=== PATIENT | female | born 1990 | race Two or more races ===

== ENCOUNTER 2019-10-24 18:06 | Emergency (ER) | payer SELFPAY ==
[~2019-10-24] VITALS: Ht 165.1 cm; Wt 68.0 kg
[2019-10-24 18:48] LABS: BILIRUBIN,URINE NEGATIVE (NEG); CLARITY,URINE CLEAR; COLOR,URINE YELLOW; NITRITE,URINE NEGATIVE (NEG); PH,URINE 6.5; PROTEIN,URINE NEGATIVE (NEG-TRACE); UROBILINOGEN,URINE 0.2 mg/dL (0.2 mg/dL)
[2019-10-24 19:00] LABS: BACTERIA,URINE FEW /HPF (0-FEW); SQUAMOUS EPITHELIAL CELL,UR FEW /LPF; WBC,URINE RARE /HPF (0-4)
[2019-10-24] MEDS ORDERED: LIDO:MAALOX 1:1 20 ML SINGLE DOSE. SWSW ONE (19:00)
[2019-10-24] MEDS ORDERED: IV NORMAL SALINE 1000ML BAG 1,000 ML IV ONE (19:00)
[2019-10-24] MEDS ORDERED: FAMOTIDINE 20 MG/2 ML VIAL IVP ONE (19:00)
[2019-10-24] MEDS ORDERED: ONDANSETRON PF 4 MG/2 ML VIAL. IV ONE (19:00)
[2019-10-24 19:21] LABS: BASO # 0.1 x10^3/uL (0.0-0.2); BASO % 1 % (0-3); EOS # 0.2 x10^3/uL (0.0-0.7); EOS % 1 % (0-3); HEMATOCRIT 40.3 % (36.0-47.0); HEMOGLOBIN 13.6 g/dL (12.0-15.5); LYMPH % 16 % (24-48); MEAN CORPUSCULAR HEMOGLOBIN 29 pg (25-35); MEAN CORPUSCULAR HGB CONC 34 g/dL (31-37); MEAN CORPUSCULAR VOLUME 86 fL (79-100); MONO # 0.5 x10^3/uL (0.0-1.1); MONO % 4 % (0-9); NEUT # 9.5 x10^3/uL (1.8-7.7); NEUT % 77 % (31-73); PLATELET COUNT 404 x10^3/uL (140-400); RED BLOOD COUNT 4.71 x10^6/uL (3.50-5.40); RED CELL DISTRIBUTION WIDTH 12.2 % (11.5-14.5); WHITE BLOOD COUNT 12.3 x10^3/uL (4.0-11.0)
[2019-10-24 19:26] LABS: CREATININE 0.8 mg/dL (0.6-1.0); GFR 85.4; POTASSIUM 3.4 mmol/L (3.5-5.1)
[2019-10-24 19:32] LABS: ALBUMIN 3.6 g/dL (3.4-5.0); ALBUMIN/GLOBULIN RATIO 0.9 (1.0-1.7); TOTAL BILIRUBIN 0.3 mg/dL (0.2-1.0); TOTAL PROTEIN 7.5 g/dL (6.4-8.2)
[2019-10-24 19:43] LABS: U PREG PATIENT NEGATIVE (NEG)
--- NOTE | 2019-10-24 19:47 | PHYS DOC ---
Past Medical History Past Medical History: No Pertinent History (VICENTE LAUGHLIN APRN) Past Surgical History: No Surgical History (VICENTE LAUGHLIN APRN) Alcohol Use: Occasionally Drug Use: None (VICENTE LAUGHLIN APRN) Attending Signature I have participated in the care of this patient and I have reviewed and agree with all pertinent clinical information above including history, exam, and recommendations. (DILIA SANCHEZ MD) Adult General Chief Complaint Chief Complaint: ABDOMINAL PAIN HPI HPI Patient is a 29 year old female who presents to the emergency department with complaints of nausea, vomiting, and epigastric pain that began today. Patient states she has vomited 3 times this evening. She denies any diarrhea, fever, sore throat, body aches, ear pain, cough, dysuria, hematuria, increased urinary frequency, back pain, shortness of breath, headache, or rash. She currently rates the pain a 10 out of 10 on pain scale and describes it as a burning sensation. All other ROS is neg unless otherwise noted in HPI. (VICENTE LAUGHLIN APRN) Review of Systems Review of Systems See Above (VICENTE LAUGHLIN APRN) Current Medications Current Medications Current Medications Medications (Trade) Dose Ordered Sig/Stephanie Start Time Stop Time Status Last Admin Dose Admin Famotidine (Pepcid Vial) 20 mg 1X ONCE 10/24/19 19:00 10/24/19 19:01 DC 10/24/19 19:11 20 MG Multi-Ingredient Mouthwash/Gargle (Gi Cocktail) 20 ml 1X ONCE 10/24/19 19:00 10/24/19 19:01 DC 10/24/19 19:11 20 ML Ondansetron HCl (Zofran) 4 mg 1X ONCE 10/24/19 19:00 10/24/19 19:01 DC 10/24/19 19:10 4 MG Sodium Chloride 1,000 ml @ 1,000 mls/hr 1X ONCE 10/24/19 19:00 10/24/19 19:59 DC 10/24/19 19:10 1,000 MLS/HR (DILIA SANCHEZ MD) Allergies Allergies Allergies Coded Allergies Type Severity Reaction Last Updated Verified No Known Drug Allergies 04/01/15 No (DILIA SANCHEZ MD) Physical Exam Physical Exam Constitutional: Well developed, well nourished, no acute distress, non-toxic appearance. [] HENT: Normocephalic, atraumatic, bilateral external ears normal, dry mucous membranes noted, no oral exudates, nose normal. [] Eyes: PERRLA, EOMI, conjunctiva normal, no discharge. [] Neck: Normal range of motion, no tenderness, supple, no stridor. [] Cardiovascular:Heart rate regular rhythm, no murmur [] Lungs & Thorax: Bilateral breath sounds clear to auscultation [] Abdomen: Bowel sounds normal, soft, epigastric tenderness to palpation, no guarding, no rebound tenderness, no masses, no pulsatile masses. [] Skin: Warm, dry, no erythema, no rash. [] Back: No CVA tenderness. [] Extremities: No cyanosis, ROM intact, no edema. [] Neurologic: Alert and oriented X 3, no focal deficits noted. [] Psychologic: Affect normal, judgement normal, mood normal. [] (VICENTE LAUGHLIN APRN) Current Patient Data Vital Signs Vital Signs Date Time Temp Pulse Resp B/P (MAP) Pulse Ox O2 Delivery O2 Flow Rate FiO2 10/24/19 20:00 80 20 101/68 (79) 98 Room Air 10/24/19 18:13 97.8 97.8 (DILIA SANCHEZ MD) Lab Values Laboratory Tests Test 10/24/19 18:44 10/24/19 19:15 Urine Collection Type Unknown Urine Color Yellow Urine Clarity Clear Urine pH 6.5 Urine Specific Pharr 1.025 Urine Protein Negative mg/dL (NEG-TRACE) Urine Glucose (UA) Negative mg/dL (NEG) Urine Ketones (Stick) Negative mg/dL (NEG) Urine Blood Small (NEG) Urine Nitrite Negative (NEG) Urine Bilirubin Negative (NEG) Urine Urobilinogen Dipstick 0.2 mg/dL (0.2 mg/dL) Urine Leukocyte Esterase Negative (NEG) Urine RBC 1-2 /HPF (0-2) Urine WBC Rare /HPF (0-4) Urine Squamous Epithelial Cells Few /LPF Urine Bacteria Few /HPF (0-FEW) Urine Mucus Slight /LPF Urine Test Negative (NEG) White Blood Count 12.3 x10^3/uL (4.0-11.0) H Red Blood Count 4.71 x10^6/uL (3.50-5.40) Hemoglobin 13.6 g/dL (12.0-15.5) Hematocrit 40.3 % (36.0-47.0) Mean Corpuscular Volume 86 fL (79-100) Mean Corpuscular Hemoglobin 29 pg (25-35) Mean Corpuscular Hemoglobin Concent 34 g/dL (31-37) Red Cell Distribution Width 12.2 % (11.5-14.5) Platelet Count 404 x10^3/uL (140-400) H Neutrophils (%) (Auto) 77 % (31-73) H Lymphocytes (%) (Auto) 16 % (24-48) L Monocytes (%) (Auto) 4 % (0-9) Eosinophils (%) (Auto) 1 % (0-3) Basophils (%) (Auto) 1 % (0-3) Neutrophils # (Auto) 9.5 x10^3/uL (1.8-7.7) H Lymphocytes # (Auto) 2.0 x10^3/uL (1.0-4.8) Monocytes # (Auto) 0.5 x10^3/uL (0.0-1.1) Eosinophils # (Auto) 0.2 x10^3/uL (0.0-0.7) Basophils # (Auto) 0.1 x10^3/uL (0.0-0.2) Sodium Level 138 mmol/L (136-145) Potassium Level 3.4 mmol/L (3.5-5.1) L Chloride Level 103 mmol/L (98-107) Carbon Dioxide Level 21 mmol/L (21-32) Anion Gap 14 (6-14) Blood Urea Nitrogen 15 mg/dL (7-20) Creatinine 0.8 mg/dL (0.6-1.0) Estimated GFR (Cockcroft-Gault) 85.4 BUN/Creatinine Ratio 19 (6-20) Glucose Level 125 mg/dL (70-99) H Calcium Level 9.0 mg/dL (8.5-10.1) Total Bilirubin 0.3 mg/dL (0.2-1.0) Aspartate Amino Transferase (AST) 35 U/L (15-37) Alanine Aminotransferase (ALT) 35 U/L (14-59) Alkaline Phosphatase 66 U/L (46-116) Total Protein 7.5 g/dL (6.4-8.2) Albumin 3.6 g/dL (3.4-5.0) Albumin/Globulin Ratio 0.9 (1.0-1.7) L Lipase 255 U/L (73-393) Laboratory Tests 10/24/19 19:15 Laboratory Tests 10/24/19 19:15 (DILIA SANCHEZ MD) EKG EKG [] (VICENTE LAUGHLIN APRN) Radiology/Procedures Radiology/Procedures [] (VICENTE LAUGHLIN APRN) Course & Med Decision Making Course & Med Decision Making Pertinent Labs and Imaging studies reviewed. (See chart for details) Patient is a 29-year-old female who presented to the emergency department with complaints of nausea, vomiting, and epigastric pain that began today. Her CBC, CMP, and UA were all unremarkable. The patient was given a liter of normal sa line, 4 mg of Zofran, a GI cocktail, and 20 mg of Pepcid IV. After these medications the patient reported feeling better. Her vital signs are stable throughout the visit. Prescriptions written for Zofran and famotidine. Patient instructed to have a clear liquid diet for 24 hours then start with bland foods and advance as tolerated. Recommend follow-up with primary care doctor this week. Return to the ER symptoms worsen. Patient verbalized an understanding of home care, medications, follow-up, and return to ED instructions and was in agreement with the plan of care. [] (VICENTE LAUGHLIN APRN) Dragon Disclaimer Dragon Disclaimer This electronic medical record was generated, in whole or in part, using a voice recognition dictation system. (VICENTE LAUGHLIN APRN) Departure Departure Impression: Primary Impression: Nausea & vomiting Additional Impression: Epigastric abdominal pain Disposition: 01 HOME, SELF-CARE Condition: STABLE Referrals: NO PCP (PCP) Patient Instructions: Nausea and Vomiting, [id number] Additional Instructions: Fill prescriptions and use them as directed. Recommend clear fluids for the next 24 hours. Then you may advance to bland foods such as bananas, rice, applesauce, and dry toast. Follow-up with your primary care doctor in the next 1-2 days. Return to the emergency room if your symptoms worsen. Scripts Famotidine (FAMOTIDINE) 20 Mg Tablet 20 MG PO HS for 10 Days, #10 TAB 0 Refills Prov: VICENTE LAUGHLIN APRN 10/24/19 Ondansetron Hcl (ONDANSETRON HCL) 4 Mg Tablet 1 TAB PO PRN Q6HRS PRN for NAUSEA/VOMITING for 3 Days, #10 TAB 0 Refills Prov: VICENTE LAUGHLIN APRN 10/24/19 Problem Qualifiers Primary Impression: Nausea & vomiting Vomiting type: unspecified Vomiting Intractability: non-intractable Qualified Codes: R11.2 - Nausea with vomiting, unspecified VICNETE LAUGHLIN APRN Oct 24, 2019 19:47 DILIA SANCHEZ MD Oct 24, 2019 23:50
[2019-10-24] MEDS ORDERED: ONDA4TAB11 PO (19:51)
[2019-10-24] MEDS ORDERED: FAMO20TA5 PO (19:51)
[2019-10-24 20:00] VITALS: BP 101/68
== END 2019-10-24 20:00 | disposition home or self-care (01) ==
LOC: ER 18:06
DX: R10.13 Epigastric pain (principal); R11.2 Nausea with vomiting, unspecified
CPT/HCPCS: 36415; 80053; 81001; 81025; 83690; 85025; 96361; 96374; 96375; 99284; J2405; J3490; J7030

== ENCOUNTER 2021-08-04 07:00 | Emergency (ER) | payer SELFPAY ==
[~2021-08-04] VITALS: Ht 160 cm; Wt 68.1 kg
[~2021-08-04 07:00] MED LIST: FAMO20TA5 PO; ONDA-84 PO
[2021-08-04] MEDS ORDERED: ONDANSETRON PF 4 MG/2 ML VIAL. IVP ONE (07:15)
[2021-08-04] MEDS ORDERED: MORPHINE SULFATE 4 MG/ML INJ. IVP ONE (07:15)
--- NOTE | 2021-08-04 07:26 | PHYS DOC ---
Past Medical History Past Medical History: No Pertinent History Past Surgical History: No Surgical History Smoking Status: Never Smoker Alcohol Use: Occasionally Drug Use: None General Adult EDM: Chief Complaint: ABDOMINAL PAIN HPI: HPI: Patient is a 30 year old female without pertinent past medical history who presents with upper abdominal pain starting abruptly at 2 AM. Epigastric in nature. Does not radiate. Has been constant since onset. Associated with nausea/vomiting. No change in bowel movements. No fever/chills. No dysuria, urgency, frequency. No vaginal discharge or bleeding. States that she has a Mirena IUD, does not think that there is a chance that she could be . States that she has had a similar episode of pain a few months ago that lasted for approximately 8 hours and then subsided at home. Denies any history of abdominal surgeries. Nothing to eat or drink today. Review of Systems: Review of Systems: Constitutional: Denies fever or chills. [] Eyes: Denies change in visual acuity. [] HENT: Denies nasal congestion or sore throat. [] Respiratory: Denies cough or shortness of breath. [] Cardiovascular: Denies chest pain or edema. [] GI: Reports abdominal pain, N/V. Denies diarrhea or bloody stools. [] : Denies dysuria. Denies vaginal discharge or bleeding. [] Musculoskeletal: Denies back pain or joint pain. [] Integument: Denies rash. [] Neurologic: Denies headache, focal weakness or sensory changes. [] Endocrine: Denies polyuria or polydipsia. [] Lymphatic: Denies swollen glands. [] Psychiatric: Denies depression or anxiety. [] Heart Score: C/O Chest Pain: No Risk Factors: Risk Factors: DM, Current or recent (<one month) smoker, HTN, HLP, family histo ry of CAD, obesity. Risk Scores: Score 0 - 3: 2.5% MACE over next 6 weeks - Discharge Home Score 4 - 6: 20.3% MACE over next 6 weeks - Admit for Clinical Observation Score 7 - 10: 72.7% MACE over next 6 weeks - Early Invasive Strategies Current Medications: Current Medications Medications (Trade) Dose Ordered Sig/Stephanie Start Time Stop Time Status Last Admin Dose Admin Morphine Sulfate (Morphine Sulfate) 4 mg 1X ONCE 08/04/21 07:15 08/04/21 07:16 UNV Ondansetron HCl (Zofran) 4 mg 1X ONCE 08/04/21 07:15 08/04/21 07:16 UNV Allergies: Allergies: Allergies Coded Allergies Type Severity Reaction Last Updated Verified No Known Drug Allergies 04/01/15 No Physical Exam: PE: Constitutional: Appears acutely uncomfortable. Clutching upper abdomen and writhing/crying.. [] HENT: Normocephalic, atraumatic. [] Eyes: PERRLA, EOMI, conjunctiva normal, no discharge. [] Neck: Normal range of motion, no tenderness, supple, no stridor. [] Cardiovascular:Heart rate regular rhythm, no murmur [] Lungs & Thorax: Bilateral breath sounds clear to auscultation [] Abdomen: focal epigastric and RUQ pain, + milton's sign. [] Skin: Warm, dry, no erythema, no rash. [] Back: No tenderness, no CVA tenderness. [] Extremities: No tenderness, no cyanosis, no clubbing, ROM intact, no edema. [] Neurologic: Alert and oriented X 3, normal motor function, normal sensory function, no focal deficits noted. [] Psychologic: Affect normal, judgement normal, mood normal. [] EKG: EKG: [] Radiology/Procedures: Radiology/Procedures: [] Impression: [facility] [address] [place], [place] [id number] IMAGING REPORT Signed PATIENT: PALMA LOZA ACCOUNT: [id number] : 1990 LOCATION: ER AGE: 30 SEX: F EXAM STATUS: REG ER ORD. PHYSICIAN: EL GIRALDO MD REASON: epigastric and RUQ abd pain/ttp, n/v PROCEDURE: CT ABD PELV W/ IV CONTRST ONLY PQRS Compliance Statement: One or more of the following individualized dose reduction techniques were utilized for this examination: 1. Automated exposure control 2. Adjustment of the mA and/or kV according to patient size 3. Use of iterative reconstruction technique CT abdomen/pelvis with contrast 08/04/2021 7:48 AM INDICATION: Epigastric and right upper quadrant abdominal pain with tenderness to palpation. COMPARISON: None available TECHNIQUE: Multiple axial CT images of the abdomen and pelvis were obtained after the intravenous administration of 75 mL Omnipaque 300. Coronal and sagittal reformats are provided. FINDINGS: There is subsegmental atelectasis at the lung bases, right greater than left. Heart size within normal limits. Liver is normal in appearance. There is a hypodense lesion within the spleen measuring 1.7 cm favors benign etiology such as a cyst, hemangioma or lymphangioma. Adrenal glands are normal. Splenule identified immediately adjacent to the left adrenal gland. Pancreas and gallbladder are normal in appearance. The abdominal aorta is normal in course and caliber. There are no pathologically enlarged lymph nodes in the abdomen and pelvis. There is no abdominal free fluid. There is no free intraperitoneal air. The kidneys enhance symmetrically. There is no suspicious renal mass. There is no hydronephrosis. There are no suspected calculi within the kidneys, ureters or urinary bladder. Urinary bladder is within normal limits given degree of distention. Small and large bowel are normal in caliber. There is no evidence for bowel obstruction. There are no pericolonic inflammatory changes. A normal, nondilated appendix is visualized without adjacent inflammatory changes. IUD is present within the uterus. There is small volume pelvic free fluid which measures simple fluid attenuation (19 Hounsfield units). Follicular changes are identified in the adnexa. Grade 1 anterolisthesis of L5 on S1 with chronic appearing bilateral L5 pars defects. IMPRESSION: Small volume free fluid identified within the pelvis with follicular changes in the adnexa. Consideration may be given for ruptured follicle. Further characterization with ultrasound of the pelvis may be of benefit. Grade 1 anterolisthesis of L5 on S1 with chronic appearing bilateral L5 pars defects. There is a hypodense lesion in the spleen measuring 1.7 cm favors benign etiology such as a cyst, lymphangioma or hemangioma. Six-month follow-up CT abdomen could be of benefit to assess stability. Electronically signed by: Fadi Flores MD (08/04/2021 8:12 AM) [id number] DICTATED and SIGNED BY: FADI FLORES MD DATE: 08/04/21 [id number] 0 Course & Med Decision Making: Course & Med Decision Making Pertinent Labs and Imaging studies reviewed. (See chart for details) Patient is a 30-year-old female without pertinent past medical history who presents with acute onset of upper abdominal pain and N/V. Appears acutely uncomfortable on arrival with focal epigastric and RUQ pain. History of similar in the past that spontaneously improved. Concern for cholelithiasis, choledocholithiasis, or potentially early cholecystitis given constant pain since onset. Also consider pancreatitis and PUD. We will obtain labs and CT abdomen/pelvis. Morphine, zofran, and IVF ordered. [address] imaging reassuring. test negative. Patient still uncomfortable after morphine. Given negative work-up, feel that PUD is most likely etiology. No evidence of bleeding PUD based on labs or history. Will treat with Protonix, famotidine, GI cocktail, viscous lidocaine and reassess. 0851 Pain much improved with above, supportive of gastritis versus nonbleeding PUD. We will discharge with Rx for omeprazole and sucralfate. Patient will follow up with PCP next week. Return precautions discussed. 1007 Kamar Disclaimer: Kamar Disclaimer: This electronic medical record was generated, in whole or in part, using a voice recognition dictation system. Departure Departure Impression: Primary Impression: Epigastric pain Additional Impressions: Anterolisthesis Splenic mass Disposition: HOME / SELF CARE / HOMELESS Condition: STABLE Referrals: NO PCP (PCP) Follow-up with your PCP next week. Additional Instructions: I believe that your pain is due to inflammation in your stomach. I want you to take 2 medications. 1. Omeprazole 40 mg daily. This medication is to reduce the acid in your stomach, which will help prevent this from happening again. I want you to take this medication before your first meal of the day. Please continue taking it for at least a month. 2. Sucralfate 1 TAB every 8 hours as needed for stomach pain. This medication coats the lining of your stomach and can help with pain. Please take every 8 hours for the first 3 days, if your pain is better after this you can stop taking the medication. Please follow-up with your primary care doctor early next week. If your pain worsens suddenly or if you have black or bloody stools please return to the emergency department for reevaluation. Scripts Sucralfate (SUCRALFATE) 1 Gm Tablet 1 TAB PO TID PRN PRN for PAIN, #90 TAB 11 Refills Prov: EL GIRALDO MD 08/04/21 Omeprazole (OMEPRAZOLE) 40 Mg Capsule.dr 1 CAP PO DAILY for DECREASE STOMACH ACID, #30 CAP 3 Refills Prov: EL GIRALDO MD 08/04/21 EL GIRALDO MD Aug 04, 2021 07:26
[2021-08-04] MEDS ORDERED: IV NORMAL SALINE 1000ML BAG 1,000 ML IV ONE (07:30)
[2021-08-04 07:34] LABS: CALCIUM 9.2 mg/dL (8.5-10.1); CREATININE 0.8 mg/dL (0.6-1.0); GFR 84.8; POTASSIUM 3.2 mmol/L (3.5-5.1)
[2021-08-04 07:41] LABS: TOTAL BILIRUBIN 0.5 mg/dL (0.2-1.0); TOTAL PROTEIN 8.1 g/dL (6.4-8.2)
[2021-08-04 07:56] LABS: BASO % 1 % (0-3); EOS % 0 % (0-3); HEMATOCRIT 40.3 % (36.0-47.0); HEMOGLOBIN 13.9 g/dL (12.0-15.5); LYMPH # 1.8 x10^3/uL (1.0-4.8); LYMPH % 17 % (24-48); MEAN CORPUSCULAR HEMOGLOBIN 30 pg (25-35); MEAN CORPUSCULAR HGB CONC 35 g/dL (31-37); MEAN CORPUSCULAR VOLUME 86 fL (79-100); MONO # 0.4 x10^3/uL (0.0-1.1); MONO % 4 % (0-9); NEUT # 8.3 x10^3/uL (1.8-7.7); NEUT % 79 % (31-73); PLATELET COUNT 397 x10^3/uL (140-400); RED BLOOD COUNT 4.71 x10^6/uL (3.50-5.40); WHITE BLOOD COUNT 10.5 x10^3/uL (4.0-11.0)
[2021-08-04] MEDS ORDERED: IOHEXOL 300 MG/ML 100ML VIAL. IV ONE (08:00)
--- NOTE | 2021-08-04 08:14 | RAD ---
PQRS Compliance Statement: One or more of the following individualized dose reduction techniques were utilized for this examinat ion: 1. Automated exposure control 2. Adjustment of the mA and/or kV according to patient size 3. Use of iterative reconstruction technique CT abdomen/pelvis with contrast 08/04/2021 7:48 AM INDICATION: Epigastric and right upper quadrant abdominal pain with tenderness to palpation. COMPARISON: None available TECHNIQUE: Multiple axial CT images of the abdomen and pelvis were obtained after the intravenous adm inistration of 75 mL Omnipaque 300. Coronal and sagittal reformats are provided. FINDINGS: There is subsegmental atelectasis at the lung bases, right greater than left. Heart size within aranza l limits. Liver is normal in appearance. There is a hypodense lesion within the spleen measuring 1.7 cm favors benign etiology such as a cyst, hemangioma or lymphangioma. Adrenal glands are normal. Sple nule identified immediately adjacent to the left adrenal gland. Pancreas and gallbladder are normal i n appearance. The abdominal aorta is normal in course and caliber. There are no pathologically enlarg ed lymph nodes in the abdomen and pelvis. There is no abdominal free fluid. There is no free intraper itoneal air. The kidneys enhance symmetrically. There is no suspicious renal mass. There is no hydron ephrosis. There are no suspected calculi within the kidneys, ureters or urinary bladder. Urinary blad prashanth is within normal limits given degree of distention. Small and large bowel are normal in caliber. There is no evidence for bowel obstruction. There are no pericolonic inflammatory changes. A normal, nondilated appendix is visualized without adjacent inflammatory changes. IUD is present within the ut erus. There is small volume pelvic free fluid which measures simple fluid attenuation (19 Hounsfield units). Follicular changes are identified in the adnexa. Grade 1 anterolisthesis of L5 on S1 with chr onic appearing bilateral L5 pars defects. IMPRESSION: Small volume free fluid identified within the pelvis with follicular changes in the adnexa. Considera tion may be given for ruptured follicle. Further characterization with ultrasound of the pelvis may b e of benefit. Grade 1 anterolisthesis of L5 on S1 with chronic appearing bilateral L5 pars defects. There is a hypodense lesion in the spleen measuring 1.7 cm favors benign etiology such as a cyst, lym phangioma or hemangioma. Six-month follow-up CT abdomen could be of benefit to assess stability. Electronically signed by: Harmony Cook MD (08/04/2021 8:12 AM) [id number]
[2021-08-04] MEDS ORDERED: CONTRAST GIVEN. MC PRN (08:15)
[2021-08-04] MEDS ORDERED: LIDOCAINE 2% VISCOUS 15 ML SOLUTION. SWSW ONE (08:30)
[2021-08-04] MEDS ORDERED: LIDO:MAALOX 1:1 20 ML SINGLE DOSE. SWSW ONE (08:30)
[2021-08-04] MEDS ORDERED: FAMOTIDINE 20 MG TABLET. PO ONE (08:45)
[2021-08-04] MEDS ORDERED: PANTOPRAZOLE IV PUSH 40 MG VIAL. IVP ONE (08:45)
[2021-08-04 10:06] VITALS: BP 142/72
[2021-08-04] MEDS ORDERED: SUCR1TAB PO (10:10)
[2021-08-04] MEDS ORDERED: OMEP40CA7 PO (10:10)
== END 2021-08-04 10:43 | disposition home or self-care (01) ==
LOC: ER 07:00
DX: R10.13 Epigastric pain (principal); R16.1 Splenomegaly, not elsewhere classified
CPT/HCPCS: 36415; 74177; 80053; 81025; 83690; 85025; 96361; 96374; 96375; 99285; C9113; J2270; J2405; J7030; Q9967